=== PATIENT | male | born 2000 | race Caucasian/White ===

== ENCOUNTER 2022-09-07 12:14 | Emergency (ER) | payer OTHER ==
[~2022-09-07] VITALS: Ht 172.7 cm; Wt 70.5 kg
[2022-09-07 12:29] VITALS: BP 139/82; TEMP 98.3
[2022-09-07] MEDS ORDERED: BACTRIM DS 8001 TAB PO (13:44)
[2022-09-07 14:00] VITALS: PULSE 64
== END 2022-09-07 14:00 | disposition home or self-care (01) ==
LOC: COL.ER 12:14
DX: L60.0 Ingrowing nail (principal); L03.031 Cellulitis of right toe; L03.114 Cellulitis of left upper limb; Z28.310 Unvaccinated for COVID-19